=== PATIENT | male | born 2000 | race Caucasian/White ===

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

== ENCOUNTER 2022-10-13 18:07 | Emergency (ER) | payer SELFPAY ==
[2022-10-13 18:10] VITALS: BP 158/86; PULSE 89; RESP 17; TEMP 36.8; O2SAT 98; BMI 32.5
--- NOTE | 2022-10-13 18:18 | PC.NURSE ---
DR. WEATHERS AT BEDSIDE
--- NOTE | 2022-10-13 18:27 | HMH.EDGENADL ---
Discharge Plan Disposition Patient Disposition: Home, Self-Care Prescriptions Prescriptions: New methocarbamol 500 mg tablet 500 mg PO TID PRN (Reason: pain) Qty: 30 0RF No Action sertraline [Zoloft] 100 mg tablet 100 mg PO DAILY Qty: 30 1RF Referrals Follow up/Referrals: Provider,Referral, [Primary Care Provider] - See instructions Activity Restrictions/Add. Instructions Additional Instructions/Restrictions: Please follow-up with your primary care provider. Please return to the emergency department if you develop any new or worsening symptoms or become concerned for your health. Please take Robaxin as needed for pain. Clinical Impressions Clinical Impression: Back pain Instructions Patient Instructions: DI for Low Back Pain Discharge ED Provider: Radames Marcial General Adult HPI General Chief complaint: Back Pain/Injury Stated complaint: back and rt side pelvic pain Time Seen by Provider: 10/13/22 18:27 Mode of Arrival: Ambulatory Source of Information: Patient Limitations: No Limitations Description of Symptoms (Recalled from ER Triage Doc. by RN): PT WITH LOW BACK PAIN THAT RADIATES TO RIGHT GROIN. HAD SIMILAR PAIN A FEW DAYS AGO THAT RESOLVED, RETURNED LAST NIGHT. EPISODE OF DIARRHEA LAST NIGHT. PAIN WORSE WITH MOVEMENT History of Present Illness HPI narrative: 22-year-old male, reportedly previously healthy, presents after waking up with severe bilateral lower back pain last night. Patient has had intermittent right lower quad abdominal pain this morning. Patient reports no symptoms yesterday, reports no recent injury or straining. 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 Patient denies any urinary symptoms, no history of STDs, is not currently sexually active. No history of stones, no history of abdominal surgeries. Right lower quadrant pain is intermittent and mild, currently he does not have pain. His back pain improved significantly after Tylenol and ibuprofen 3 hours prior to arrival. Related Data Previous Rx's Medication Instructions Recorded sertraline 100 mg tablet (Zoloft) 100 mg PO DAILY #30 tabs 08/22/22 methocarbamol 500 mg tablet 500 mg PO TID PRN pain #30 tabs 10/13/22 Allergies Allergy/AdvReac Type Severity Reaction Status Date / Time cefdinir [From OMNICEF] Allergy Unknown Verified 10/13/22 20:00 ceftriaxone [From ROCEPHIN] Allergy Unknown Verified 10/13/22 20:00 fexofenadine [From LUIS M] Allergy Unknown Verified 10/13/22 20:00 Penicillins [PENICILLINS] Allergy Unknown Verified 10/13/22 20:00 [facility] Disclaimer: The information contained in this section may have been updated after the patient was seen, as this information can be updated by other users. Medical History (Updated 10/13/22 @ 20:33 by Radames Marcial MD) Attention deficit disorder (ADD) in adult Major depressive disorder Family History (Updated 10/13/22 @ 18:23 by Jessica Reid RN) Other No significant family history Social History (Updated 10/13/22 @ 18:23 by Jessica Reid RN) Smoking Status: Never smoker alcohol intake: current substance use type: marijuana (he does smoke sometimes; the last time was on Thursday; to calm down; cause his sister) current occupational status: student Travel in the last 8 weeks: None household members: family housing: house number of children: 0 ROS Obtained: Yes All systems reviewed & no additional complaints except as documented Physical Exam General General appearance: alert and in no apparent distress Head Head exam: atraumatic and normocephalic Eye Eye exam: Present normal appearance, PERRL and EOMI ENT ENT exam: Present normal oropharynx and normal external ear exam Neck Neck exam: Present normal inspection and full ROM Chest Chest inspection: Present normal inspection and symmetric chest wall rise; Absent tenderness Respiratory Respiratory exam: Present normal lung sounds bilaterally; Absent respiratory di
[2022-10-13 18:52] LABS: Microscopic, Urine URINE MICROSCOPIC (MICROSCOPIC)
[2022-10-13 19:03] LABS: Appearance,Urine CLEAR (Clear); Blood, Urine Negative (Negative); Color,Urine DK YELLOW (Yellow); Glucose,Urine (UA) Negative (Negative); Ketones,Urine 1+ (Negative); Leukocyte Esterase,Urine Negative (Negative); Nitrate,Urine Negative (Negative); Protein,Urine 2+ (Negative)
--- NOTE | 2022-10-13 19:16 | PC.NURSE ---
Report from Jessica Medina RN
[2022-10-13 19:48] LABS: Bilirubin,Urine 2+ (Negative)
[2022-10-13 19:49] LABS: Mucus,Urine 1+ /lpf; Squamous Epithelial Cell,Urine Occasional #/hpf (0-5); WBC,Urine Occasional #/hpf (0-3)
[2022-10-13 19:50] LABS: Amorphous Sediment,Urine 2+ /lpf
[2022-10-13 20:41] VITALS: BP 111/71; PULSE 81; RESP 19; TEMP 36.8; O2SAT 97
== END 2022-10-13 20:41 | disposition home or self-care (01) ==
PROVIDERS: Emergency Provider Emergency Medicine
DX: M54.50 Low back pain, unspecified (principal); R10.31 Right lower quadrant pain; F98.8 Other specified behavioral and emotional disorders with onset usually occurring in childhood and adolescence; F32.9 Major depressive disorder, single episode, unspecified
CPT/HCPCS: 81001; 99283

== ENCOUNTER 2023-09-07 22:31 | Emergency (ER) | payer SELFPAY ==
[2023-09-07 22:41] VITALS: BP 147/84; PULSE 88; RESP 18; TEMP 36.7; O2SAT 99
[2023-09-07 22:59] VITALS: BP 139/80; PULSE 85; RESP 16; TEMP 36.7; O2SAT 99
--- NOTE | 2023-09-07 23:00 | HMH.EDGENADL ---
Discharge Plan Disposition Patient Disposition: Home, Self-Care Prescriptions Prescriptions: No Action fluoxetine [Prozac] 20 mg capsule 20 mg PO DAILY Qty: 30 1RF methocarbamol 500 mg tablet 500 mg PO TID PRN (Reason: pain) Qty: 30 0RF Referrals Follow up/Referrals: Mathieu Iraheta [Primary Care Provider] - See instructions Activity Restrictions/Add. Instructions Additional Instructions/Restrictions: Take Tylenol 1000 mg every 6 hours (4 times daily) and ibuprofen 400 mg every 6 hours (4 times daily) as needed with food and water to prevent GI upset and kidney damage. 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 Topical Voltaren may also be helpful. Benadryl 25 to 50 mg every 6-8 hours can help with burning and stinging symptoms as well. Clinical Impressions Clinical Impression: Sunburn Stand Alone Forms Stand Alone Forms: Work/School Release Instructions Patient Instructions: DI for Skin Abscess Discharge ED Provider: Samir Mccormack General Adult HPI General Chief complaint: Skin/Abscess/Foreign Body Stated complaint: Sun poisoning Time Seen by Provider: 09/07/23 22:40 Mode of Arrival: Ambulatory Source of Information: Patient Limitations: No Limitations Description of Symptoms (Recalled from ER Triage Doc. by RN): pt reports getting sunburned on 09/04. pt presents with a concern for sun poisoning. pt has a generalized sun burn. blistering on his chest and shoulders. pt reports using aloe with 1% lidocaine without any relief. no oral analgesics taken. pt reports the pain is 15/10 and burning in nature. pt denies any other symptoms. History of Present Illness HPI narrative: Please note that above description of symptoms, in this electronic medical record under categorization of recalled from ER triage doctor by RN are reflective of an initial nursing assessment, however, is not reflective of my full history and physical exam that was personally taken and clarified. Consequentially, this preceding description of symptoms, which may include the patient's categorized chief complaint in the EMR, do not reflect my personal clinical impression, and the ultimate description of history of present illness and patient stated complaints should be deferred to this section of the note. Unless stated otherwise or congruent with this section of the note, additional signs, symptoms, or incongruence should be interpreted as inaccurate with my clinical impression. Related Data Previous Rx's Medication Instructions Recorded methocarbamol 500 mg tablet 500 mg PO TID PRN pain #30 tabs 10/13/22 fluoxetine 20 mg capsule (Prozac) 20 mg PO DAILY #30 caps 12/11/22 Allergies Allergy/AdvReac Type Severity Reaction Status Date / Time cefdinir [From OMNICEF] Allergy Unknown Verified 09/07/23 22:46 ceftriaxone [From ROCEPHIN] Allergy Unknown Verified 09/07/23 22:46 fexofenadine [From LUIS M] Allergy Unknown Verified 09/07/23 22:46 Penicillins [PENICILLINS] Allergy Unknown Verified 09/07/23 22:46 [facility] Disclaimer: The information contained in this section may have been updated after the patient was seen, as this information can be updated by other users. Medical History (Updated 09/07/23 @ 22:58 by Samir Mccormack MD) Major depressive disorder Attention deficit disorder (ADD) in adult Family History (Updated 10/13/22 @ 18:23 by Jessica Reid RN) Other No significant family history Social History (Updated 10/13/22 @ 18:23 by Jessica Reid RN) Smoking Status: Never smoker alcohol intake: current alcohol intake frequency: holidays/special occasions only substance use type: marijuana (he does smoke sometimes; the last time was on Thursday; to calm down; cause his sister) current occupational status: student Travel in the last 8 weeks: None household members: family housing: house number of children: 0 ROS Obtained: Yes All systems reviewed & no additional complaints except as documented Physical Exam General General appearance: alert and in no apparent distress Head Head exam: atraumatic and normocephalic Eye Eye exam: Present normal appearance, PERRL and EOMI ENT ENT exam: Present mucous membranes moist Neck Neck exam: Present normal inspection, full ROM and trachea midline Respiratory Respiratory exam: Absent respiratory distress, wheezes, stridor, accessory muscle use or prolonged expiratory phase Cardiovascular Cardiovascular exam: Present normal rhythm Abdominal Exam Abdominal exam: Present soft; Absent distention, tenderness, guarding, rebound or rigidity Extremities Exam Extremities exam: Absent edema Neurological Exam Neurological exam: Present alert, oriented X3, CN II-XII intact and normal gait; Absent motor sensory deficit Skin Skin exam: Present warm, dry and erythema (and blistering on shoulders); Absent diaphoresis Medical Decision Making Medical Records Medical records reviewed: Yes I reviewed the patient's medical records. Jay Inquiry Pt receiving controlled substance: No Jay was queried for this patient: No Vital Signs: 09/07/23 22:41 09/07/23 22:59 Temperature 98.1 F 98.1 F Temperature Source Oral Pulse Rate 85 Pulse Rate [Left] 88 Respiratory Rate 18 16 Blood Pressure 139/80 Blood Pressure [Right Arm] 147/84 H Blood Pressure Mean [Right Arm] 105 Blood Pressure Source [Right Arm] Automatic Cuff Blood Pressure Position [Right Arm] Sitting 02 Sat by Pulse Oximetry 99 Oxygen Delivery Method Room Air Medical Decision Narrative: 22-year-old male no relevant medical history presenting with sun poisoning. Patient states that he just went to [place] for a week, got back yesterday, 09/05 and had trouble sleeping all night due to the pain on his torso, especially shoulders. Has tried Tylenol and Motrin, these only mildly helped. Has not tried any topicals. 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 No other relevant history. On arrival, patient appears to be in no acute distress, but he is uncomfortable. Erythema and sunburn bilateral upper and lower extremities, trunk, worse at the shoulders, but spares the neck and face. He does have blistering on bilateral shoulders. Blanching. Sensate. Differential includes sunburn, sun poisoning, superficial dermal versus deep dermal sunburn, among others. Because patient took Tylenol Motrin just for arrival, no further interventions deemed necessary at this time. Conversation was had with patient regarding home-going with topical vitamin E lotions, other topicals, he voices understanding. Because patient at baseline without signs or symptoms of clinical decompensation, deemed appropriate for discharge. Results were relayed to patient who voiced understanding and were agreeable to outpatient management and follow up. I discussed my clinical impression with patient and answered all questions. At this time, the evidence for any other entities in the differential is insufficient to warrant any further testing or ED observation. This was explained as well. Advisory was given that persistent or worsening symptoms require further evaluation. I confirmed the understanding of this discussion. Coil Builder disclaimer Much of this encounter note is an electronic armored cable machine operator spoken language to printed text. Electronic armored cable machine operator of the spoken language may permit errors. Although I have reviewed the note, some errors may still exist. Critical Care Critical Care Time Critical Care Time: No
== END 2023-09-07 23:00 | disposition home or self-care (01) ==
PROVIDERS: Emergency Provider Emergency Medicine; PCP Family Medicine
DX: L55.9 Sunburn, unspecified (principal)
CPT/HCPCS: 99282

== ENCOUNTER 2024-09-03 11:30 | Outpatient (CLI) | payer OTHER, SELFPAY ==
[2024-09-03 20:25] LABS: Coronavirus 19, PCR Not Detected (NotDetected); Human Rhinovirus Not Detected (NotDetected); Influenza A, PCR Not Detected (NotDetected); Influenza B, PCR Not Detected (NotDetected); Respiratory Syncytial Virus Not Detected (NotDetected)
--- OUTSIDE RECORDS SUMMARY | 2024-09-05 11:33 | XMS_ITS | Clinical Summary ---
Author Organization [facility] Address [address] [place] [address] Phone Care Team Providers Care Canine Service Teacher Name Role Phone Kale Alva MD [ ] Conditions or Problems Problem Name Problem Code Onset Date Status Entry Date Provider Comment Standard Description Annotate PCN ALLERGY Z88.0 (ICD-10-CM ) Active Ava Hector Allergy status to penicillin ABSCESS, LEFT FOOT 682.7 (ICD-9-CM) Active Ava Hector Cellulitis and abscess of foot, except toes CELLULITIS, LEFT FOOT 682.7 (ICD-9-CM) Active Ava Hector Cellulitis and abscess of foot, except toes ACCIDENT CAUSED BY PITCH FORK E920.4 (ICD-9-CM) Active Ava Hector Accidents caused by other hand tools and implements Medications Medication Instructions Start Date Stop Date Generic Name NDC Provider BACTRIM 400-80 MG TABS Take one (1) tablet by mouth twice a day SULFAMETHOXAZOL E-TRIMETHOPRIM [id number] Kale Alva MD BACTRIM DS 800-160 MG TABS 1 by mouth twice a day SULFAMETHOXAZOL E-TRIMETHOPRIM [id number] Kale Alva MD CLARITIN 10 MG CAPS 1 po prn LORATADINE [id number] Kale Alva MD BACTRIM DS 800-160 MG TABS 1 po bid SULFAMETHOXAZOL E-TRIMETHOPRIM [id number] Kale Alva MD AZITHROMYCIN 250 MG TABS 2 po qd AZITHROMYCIN [id number] Kale Alva MD FLONASE 50 MCG/ACT NASAL SUSPENSION inhale one spray daily to each nostril FLUTICASONE PROPIONATE [id number] Shruti Huerta BACTRIM DS 800-160 MG TABS 1 po bid SULFAMETHOXAZOL E-TRIMETHOPRIM [id number] Shruti Huerta AZITHROMYCIN 250 MG TABS 2 po qd AZITHROMYCIN [id number] Shruti Huerta Medications Administered No information available. 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 Plan of Care Type Date Detail Pending order Continue oral an tibiotics Pending order Wound Culture an d Sensitivity Pending order AFB Culture & Se nsitivity Pending order Fungal Culture & Sensitivity Pending order X-Ray, Foot Pending order New Oral Antibio tic Patient education Medications Procedures Code Procedure Name Date Entry Date 52653 Puncture aspiration of abscess, hematoma, bulla, or cyst Vital Signs Date Name Value Unit Description BMI (Body Mass Index) 27.67 kg/m2 Bod y Mass Index (Ratio) Body Temperature 98.0 [degF] temperat ure E&M BP Diastolic 68 mm[Hg] blood pressu re, diastolic BP Systolic 112 mm[Hg] blood pressur e, systolic Heart Rate 86 /min pulse rate Height 58.5 [in_us] height E&M Respiratory Rate 16 /min respirat ory rate E&M Weight Measured 134.2 [lb_av] weight E& M Weight Measured 134.2 [lb_av] weight E& M Immunizations No information available. Advance Directives No information available.
== END 2024-09-03 23:59 | disposition home or self-care (01) ==
LOC: LAB.DROPOF 09-05 11:31
PROVIDERS: PCP Family Medicine; Visit Provider Nurse Practitioner Family
DX: R05.9 Cough, unspecified (principal)
CPT/HCPCS: 87631